=== PATIENT | female | born 1965 | race Caucasian/White ===

== ENCOUNTER 2021-08-02 08:09 | Day surgery (SDC) | payer BC ==
[~2021-08-02] VITALS: Ht 165.1 cm; Wt 102.6 kg
[~2021-08-02 08:09] MED LIST: PRILOSEC 20MG20 MG PO
[2021-08-02] MEDS ORDERED: SINGULAIR 110 MG/TAB PO (08:54)
[2021-08-02] MEDS ORDERED: SYNTHROID0.1 MG/TAB PO (08:54)
[2021-08-02] MEDS ORDERED: HCTZ 25MG TAB25 MG PO (08:54)
[2021-08-02] MEDS ORDERED: NAPROSYN 2250 MG/TAB PO (08:55)
[2021-08-02] MEDS ORDERED: XYZAL5 MG PO (08:55)
[2021-08-02 08:56] VITALS: BP 147/78; PULSE 76; TEMP 97
--- NOTE | 2021-08-02 12:00 | NUR ---
Patient escorted to patient entrance via wheelchair. along side. Patient got into personal vehicle unassisted and left in the care of her .
[2021-08-02] MEDS ORDERED: NORCO 325 MG-51 TAB PO (12:35)
[2021-08-02 13:30] VITALS: BP 146/86; PULSE 51; TEMP 97.3
--- NOTE | 2021-08-02 13:30 | NUR ---
Patient is drowsy but arousable. Report received from WAN Wei. Patient arrived back into [facility] [address]. at bedside. Patient states she would like to rest for a bit. States pain is tolerable and no nausea.
[2021-08-02 13:45] VITALS: BP 131/79; PULSE 62
--- NOTE | 2021-08-02 13:45 | NUR ---
Patient resting with eyes closed.
[2021-08-02 14:00] VITALS: BP 149/81; PULSE 51
--- NOTE | 2021-08-02 14:00 | NUR ---
Patient resting with eyes closed. at bedside.
[2021-08-02 14:15] VITALS: BP 150/64; PULSE 62
--- NOTE | 2021-08-02 14:15 | NUR ---
Patient resting with eyes closed. at bedside. Water brought into room. for patient.
[2021-08-02 14:30] VITALS: BP 151/87; PULSE 54
--- NOTE | 2021-08-02 14:30 | NUR ---
Patient states she would like to try and eat and drink. Patient tolerating saltine crackers and and water.
--- NOTE | 2021-08-02 14:45 | NUR ---
Patient up to restroom. Able to void successfully. States having some right shoulder pain, pain around incision site. PRN [place] given per MAR. Patient to get dressed with assistance from .
--- NOTE | 2021-08-02 15:05 | NUR ---
Went through discharge instructions with patient and . Verbalized understanding to education. Patient's IV d/c'd without complications. Instructed patient to apply pressure if needed. Patient escorted to patient entrance via wheelchair with along side. Patient got into personal vehicle unassisted and left in the care of her , Ej.
== END 2021-08-02 15:15 | disposition home or self-care (01) ==
LOC: SDCO 08:09
DX: K80.10 Calculus of gallbladder with chronic cholecystitis without obstruction (principal)
CPT/HCPCS: J1100; J1170; J1885; J2405; J2550; J2704; J2710; J3010; J7120

== ENCOUNTER → 2021-11-27 | Outpatient (CLI) | payer BC ==
[~2021-11-27] MED LIST changes: +HCTZ 25MG TAB25 MG PO; +NAPROSYN 2250 MG/TAB PO; +NORCO 325 MG-51 TAB PO; +SINGULAIR 110 MG/TAB PO; +SYNTHROID0.1 MG/TAB PO; +XYZAL5 MG PO
== END ==
LOC: MC.RAD 07:50
DX: Z12.31 Encounter for screening mammogram for malignant neoplasm of breast (principal)